=== PATIENT | female | born 1970 | race Caucasian/White ===

== ENCOUNTER 2023-06-18 23:44 | Emergency (ER) | payer MEDICAID, SELFPAY ==
[2023-06-18 23:57] VITALS: BP 149/85; PULSE 102; RESP 22; TEMP 37.7; O2SAT 96; BMI 20.9
--- NOTE | 2023-06-19 01:08 | XRR_ITS ---
PROCEDURE INFORMATION: Exam: XR Chest Exam date and time: 06/19/2023 1:18 AM Age: 52 years old Clinical indication: Cough and fever; Patient HX: Cough with fever; Additional info: Cough fever TECHNIQUE: Imaging protocol: Radiologic exam of the chest. Views: 1 view. COMPARISON: No relevant prior studies available. FINDINGS: Lungs: Unremarkable. No consolidation. Pleural spaces: Unremarkable. No pleural effusion. No pneumothorax. Heart/Mediastinum: Unremarkable. No cardiomegaly. Bones/joints: Unremarkable. XR/XR chest 1V portable [id number] IMPRESSION: No acute findings.
[2023-06-19 01:35] LABS: Basophils % 0.1 %; Hematocrit 37.3 % (36-47); Lymphocytes # 0.9 10^3/uL (0.8-4.8); Lymphocytes % 10.8 %; Mean Corpuscular HGB Conc 33.5 g/dL (30-55); Mean Corpuscular Hemoglobin 29.8 pg (27-33); Mean Platelet Volume 9.4 fL (7.4-10.4); Monocytes # 0.5 10^3/uL (0.2-0.9); Monocytes % 6.4 %; Neutrophils % 82.5 %; Nucleated Red Blood Cells % 0 %; Platelet Count 142 10^3/cmm (157-399); Red Blood Count 4.19 10^6/uL (3.85-5.65); Red Cell Distribution Width 13.2 % (12.1-15.1); White Blood Count 8.49 10^3/uL (3.29-11.43)
[2023-06-19 01:49] LABS: D Dimer 0.55 ug/mLFEU (0-0.59)
[2023-06-19] MEDS: ketorolac 30 mg/mL INJ IVP (01:49)
[2023-06-19] MEDS: ondansetron 2 mg/ML SDV 2 mL 4 MG IVP (01:49)
[2023-06-19 01:50] VITALS: RESP 18
[2023-06-19] MEDS: sodium chloride 0.9% 1,000 ML 999 ML IV (01:50)
[2023-06-19] MEDS: morphine 4 mg/mL SDV 1 mL IVP (01:50)
--- NOTE | 2023-06-19 01:51 | W.ED.ABDPA2 ---
HPI - Abdominal Pain General: Chief Complaint: Abdominal Pain Stated Complaint: Pain left mid flank and hip Time Seen by Provider: 06/19/23 01:02 History of Present Illness: 52-year-old female with multiple complaints this morning. She presents with cough, congestion, fever, left-sided flank pain and belly pain. She has been vomiting. Pain started on . It has continued. Pain radiates from flank to hip. She is somewhat short of breath Associated Symptoms: Reports chills, dysuria, fever(s), nausea and vomiting; Denies diarrhea Review of Systems Const: Reports: fever(s), chills and body aches ENMT: Denies: throat pain Card: Denies: chest pain or palpitations Resp: Reports: dyspnea and productive cough GI: Reports: abdominal pain, nausea and vomiting; Denies: diarrhea : Reports: flank pain and dysuria Musc: Reports: back pain Skin/Breast: Denies: rash Neuro: Reports: headache(s) Physical Exam Const: GENERAL APPEARANCE: cooperative, anxious and ill appearing; not frail appearing HENMT: COMMON NORMALS: normocephalic, atraumatic and Normal external nose present HEAD & SCALP: normocephalic and atraumatic FACE & SINUS: normal facial exam and face symmetric NOSE: Normal external nose present Eye: COMMON NORMALS: Equal, round and reactive pupils present and EOMs intact bilaterally PUPIL: Yes Equal, round and reactive pupils present Neck/C-Spine: GENERAL: Yes trachea midline Chest: CHEST: Yes Symmetrical chest wall rise Resp: COMMON NORMALS: normal respiratory effort, No retractions, No use of accessory muscles and clear to auscultation bilaterally AUSCULTATION: clear to auscultation bilaterally Cardio: COMMON NORMALS: regular rate and regular rhythm RATE: regular rate RHYTHM: regular rhythm GI: COMMON NORMALS: Normal to inspection, nondistended, normoactive bowel sounds present PALPATION: Yes Tenderness to palpation present (GI) Details: LLQ and LUQ : BLADDER/KIDNEY EXAM: Yes CVA tenderness on the left Back/Pelvis: GENERAL BACK: Yes CVA tenderness Extremity: COMMON NORMALS: no pedal edema Neuro: EMIL COMA SCALE: document GCS findings [place] coma scale eye opening: Spontaneous [place] coma scale verbal response: Orientated Emil coma scale motor response: Obey commands Emil coma scale total score: 15 SENSORY EXAM: Yes extremities (intact) Psych: COMMON NORMALS: speech normal SPEECH: Yes normal speech Skin: COMMON NORMALS: no rashes or lesions noted GENERAL SKIN EXAM: no rashes or lesions noted Course Vital Signs: Vital signs: Vital Signs Temperature 97.6 F 06/19/23 03:14 Pulse Rate 79 06/19/23 03:55 Respiratory Rate 18 06/19/23 01:50 Blood Pressure 106/58 06/19/23 03:55 Pulse Oximetry 96 06/19/23 03:55 Oxygen Delivery Me thod Room Air 06/19/23 03:55 MDM - Abdominal Pain Medical Decision Making Vitals have been stable here. She did have a fever. She was given Toradol and Tylenol with resolution of the temperature. Her white blood cell count is 8.5. Platelet count 142. BMP is not remarkable. She has 2+ leukocyte Estrace with positive nitrites, whites in the urine. She also has some blood in the urine. Swabs for flu and COVID are negative. She is given IV antibiotics. Her chest x-ray is negative. Awaiting CT scan for stone protocol given the hematuria. Mild hydronephrosis on the left with no obstructing stone by CT scan. Her pain is resolved. This is likely a passed stone given her clinical history, etc. With resolution of her pain and nausea, the patient feels as if she can go home. She will be treated with antibiotics for pyelonephritis. Return for any worsening symptoms. She agrees to plan. Lab Data 06/19/23 01:20 06/19/23 01:20 Labs/Radiology: Radiology Impressions Chest X-Ray 06/19/23 01:08 IMPRESSION: No acute findings. Abdomen/Pelvis CT 06/19/23 02:47 IMPRESSION: 1. There is [id number] left hydronephrosis and hydroureter with no obstructing stone visualized. There is left perinephric fat stranding with some fluid. These findings may be due to recently passed stone or infection. Advise correlation. 2. Suspect cystitis as well. 3. Minimal left nephrolithiasis and other chronic findings. Mild hepatosplenomegaly. 4. No small bowel obstruction, abscess or free air. The colon is rather fecal filled. Laboratory Results WBC 8.49 10^3/uL (3.29-11.43) 06/19/23 01:20 RBC 4.19 10^6/uL (3.85-5.65) 06/19/23 01:20 Hgb 12.50 g/dL (11.27-16.99) 06/19/23 01:20 Hct 37.3 % (36-47) 06/19/23 01:20 MCV 89.0 fl (85-98) 06/19/23 01:20 MCH 29.8 pg (27-33) 06/19/23 01:20 MCHC 33.5 g/dL (30-55) 06/19/23 01:20 RDW 13.2 % (12.1-15.1) 06/19/23 01:20 Plt Count 142 10^3/cmm (157-399) L 06/19/23 01:20 MPV 9.4 fL (7.4-10.4) 06/19/23 01:20 Neut % (Auto) 82.5 % 06/19/23 01:20 Lymph % (Auto) 10.8 % 06/19/23 01:20 [place] % (Auto) 6.4 % 06/19/23 01:20 Eos % (Auto) 0.0 % 06/19/23 01:20 Baso % (Auto) 0.1 % 06/19/23 01:20 Neut # (Auto) 7.00 10^3/uL (1.8-7.7) 06/19/23 01:20 Lymph # (Auto) 0.9 10^3/uL (0.8-4.8) 06/19/23 01:20 [place] # (Auto) 0.5 10^3/uL (0.2-0.9) 06/19/23 01:20 Eos # (Auto) 0.0 10^3/uL (0.0-0.8) 06/19/23 01:20 Baso # (Auto) 0.0 10^3/uL (0.0-0.1) 06/19/23 01:20 Nucleated RBC % (auto) 0 % 06/19/23 01:20 Nucleated RBCs # 0.0 /100WBC 06/19/23 01:20 D-Dimer 0.55 ug/mLFEU (0-0.59) 06/19/23 01:20 Sodium 136 mmol/L (136-145) 06/19/23 01:20 Potassium 4.3 mmol/L (3.5-5.1) 06/19/23 01:20 Chloride 103 mmol/L (98-107) 06/19/23 01:20 Carbon Dioxide 23 mmol/L (22-29) 06/19/23 01:20 Anion Gap 14.3 (5-19) 06/19/23 01:20 BUN 17 mg/dL (6-20) 06/19/23 01:20 Creatinine 0.8 mg/dL (0.5-0.9) 06/19/23 01:20 GFR Calculation 74.7 mL/min (90-130) L 06/19/23 01:20 Glucose 122 mg/dL (65-115) H 06/19/23 01:20 Calculated Osmolality 285 mOsm/kg (285-295) 06/19/23 01:20 Lactic Acid 0.6 mmol/L (0.5-2.2) 06/19/23 01:20 Calcium 9.3 mg/dL (8.5-10.5) 06/19/23 01:20 Total Bilirubin 0.3 mg/dL (0.15-1.2) 06/19/23 01:20 AST 33 U/L (0-32) H 06/19/23 01:20 ALT 47 U/L (0-33) H 06/19/23 01:20 Alkaline Phosphatase 118 U/L (35-105) H 06/19/23 01:20 C-Reactive Protein 55.9 mg/L (0.0-4.9) H 06/19/23 01:20 Total Protein 7.8 g/dL (6.6-8.7) 06/19/23 01:20 Albumin 3.6 g/dL (3.5-5.2) 06/19/23 01:20 Globulin 4.2 g/dL (1.3-4.6) 06/19/23 01:20 Lipase 28 U/L (13-60) 06/19/23 01:20 Urine Color Yellow (Yellow) 06/19/23 02:06 Urine Appearance Clear (CLEAR) 06/19/23 02:06 Urine pH 7 (5-7) 06/19/23 02:06 Ur Specific [place] 1.010 (1.005-1.030) 06/19/23 02:06 Urine Protein 1+ (Negative) H 06/19/23 02:06 Urine Glucose (UA) Norm (Normal) 06/19/23 02:06 Urine Ketones 1+ (Negative) H 06/19/23 02:06 Urine Blood 3+ (Negative) H 06/19/23 02:06 Urine Nitrate Positive (Negative) H 06/19/23 02:06 Urine Bilirubin Neg (Negative) 06/19/23 02:06 Urine Urobilinogen Norm mg/dL (Negative) 06/19/23 02:06 Ur Leukocyte Esterase 2+ (Negative) H 06/19/23 02:06 Urine RBC 15-25 /hpf (0-2) H 06/19/23 02:06 Urine WBC 25-40 /hpf (0-5) H 06/19/23 02:06 Ur Squamous Epith Cells 0-4 /hpf (0-5) H 06/19/23 02:06 Amorphous Sediment 1+ /hpf 06/19/23 02:06 Urine Bacteria 2+ /hpf (NONE) H 06/19/23 02:06 Hyaline Casts 0-4 /lpf H 06/19/23 02:06 Urine Mucus Trace /hpf 06/19/23 02:06 Adenovirus (PCR) Not detected (NOT DETECT) 06/19/23 02:00 C. pneumoniae DNA (PCR) Not detected (NOT DETECT) 06/19/23 02:00 Coronavirus 229E (PCR) Not detected (NOT DETECT) 06/19/23 02:00 Human Metapneumovir PCR Not detected (NOT DETECT) 06/19/23 02:00 Influenza A (H1) PCR Not detected (NOT DETECT) 06/19/23 02:00 Influ A (H1/09) PCR Not detected (NOT DETECT) 06/19/23 02:00 Influenza A (H3) PCR Not detected (NOT DETECT) 06/19/23 02:00 Influenza Type A Ag negative (Negative) 06/19/23 02:00 Influenza Type A (PCR) Not detected (NOT DETECT) 06/19/23 02:00 Influenza Type B Ag negative (Negative) 06/19/23 02:00 Influenza Type B (PCR) Not detected (NOT DETECT) 06/19/23 02:00 M. pneumoniae (PCR) Not detected (NOT DETECT) 06/19/23 02:00 Parainfluenza 1 (PCR) Not detected (NOT DETECT) 06/19/23 02:00 Parainfluenza 2 (PCR) Not detected (NOT DETECT) 06/19/23 02:00 Parainfluenza 3 (PCR) Not detected (NOT DETECT) 06/19/23 02:00 Parainfluenza 4 (PCR) Not detected (NOT DETECT) 06/19/23 02:00 RSV Type A (PCR) Not detected (NOT DETECT) 06/19/23 02:00 RSV Type B (PCR) Not detected (NOT DETECT) 06/19/23 02:00 Entero/Rhino (PCR) Not detected (NOT DETECT) 06/19/23 02:00 SARS-CoV-2 (PCR) Not detected (NOT DETECT) 06/19/23 02:00 SARS-CoV-2 Ag (Rapid) negative (Negative) 06/19/23 02:00 All radiology interpretation(s) finalized by discharge Discharge Plan Discharge Patient Disposition: Home Clinical Impression: Urinary tract infection Clinical Impression: (Ruled Out): Abdominal pain Condition: Stable Prescriptions: New Bactrim DS 800-160 mg tablet 1 tab PO BID 7 Days Qty: 14 0RF ondansetron 4 mg tablet,disintegrating 4 mg PO Q6H PRN (Reason: nausea and vomiting) Qty: 14 0RF Discharge Orders: Discharge ED (Routine); Ordered 06/19/23 Ordered By: Heber Joiner Patient Instructions: Kidney Infection (ED), Opioid Safety, Pain Management Activity Restrictions/Additional Instructions: Return for fever despite 2-3 doses of antibiotics, vomiting liquids or medications, worsening pain despite treatment, any other concerning symptoms. See your doctor for follow-up this week to ensure your urine infection is clearing. Coding Level of Care Code ED Visitor Services Specialist for Jaime Mosqueda
[2023-06-19 01:55] LABS: Alanine Aminotransferase 47 U/L (0-33); Albumin Level 3.6 g/dL (3.5-5.2); Alkaline Phosphatase 118 U/L (35-105); Anion Gap 14.3 (5-19); Aspartate Amino Transferase 33 U/L (0-32); Blood Urea Nitrogen 17 mg/dL (6-20); C Reactive Protein 55.9 mg/L (0.0-4.9); Calcium 9.3 mg/dL (8.5-10.5); Carbon Dioxide 23 mmol/L (22-29); Chloride 103 mmol/L (98-107); Globulin 4.2 g/dL (1.3-4.6); Glomerular Filtration Rate 74.7 mL/min (90-130); Glucose 122 mg/dL (65-115); Lipase 28 U/L (13-60); Osmolality Calculated 285 mOsm/kg (285-295); Potassium 4.3 mmol/L (3.5-5.1); Sodium 136 mmol/L (136-145); Total Bilirubin 0.3 mg/dL (0.15-1.2); Total Protein 7.8 g/dL (6.6-8.7)
[2023-06-19 01:56] LABS: Lactic Sepsis W/Reflex 0.6 mmol/L (0.5-2.2)
[2023-06-19 02:28] LABS: Add Urine Microscopic? YES
[2023-06-19 02:32] LABS: Protein Urine 1+ (Negative); Urine Appearance Clear (CLEAR); Urine Color Yellow (Yellow); pH Urine 7 (5-7)
[2023-06-19 02:32] LABS: Influenza A by IFA negative (Negative); Influenza B by IFA negative (Negative); SARS Covid-2 Antigen negative (Negative)
[2023-06-19 02:33] LABS: Bilirubin Urine Neg (Negative); Blood Urine 3+ (Negative); Glucose Urine UA Norm (Normal); Ketones Urine 1+ (Negative); Leukocyte Esterase Urine 2+ (Negative); Nitrate Urine Positive (Negative); Urobilinogen Urine Norm (Negative)
[2023-06-19 02:34] LABS: Add Urine Culture? Yes; Amorphous Sediment Urine 1+ /hpf; Bacteria Urine 2+ /hpf; Hyaline Casts Urine 0-4 /lpf; Mucus Urine TRACE /hpf; RBC Urine 15-25 /hpf (0-2); Squamous Epithelial Cell Urine 0-4 /hpf (0-5); WBC Urine 25-40 /hpf (0-5)
[2023-06-19] MEDS: acetaminophen 500 mg Tablet 1000 MG PO (02:38)
[2023-06-19 02:42] VITALS: BP 120/62; PULSE 84; O2SAT 94
--- NOTE | 2023-06-19 02:47 | CTR_ITS ---
PROCEDURE INFORMATION: Exam: CT Abdomen And Pelvis Without Contrast Exam date and time: 06/19/2023 3:16 AM Age: 52 years old Clinical indication: Abdominal pain; Prior surgery; Surgery date: 6+ months; Surgery type: Tubal; Patient HX: Left flank pain with hematuria; Additional info: Left flank pain, UTI, hematuria TECHNIQUE: Imaging protocol: Computed tomography of the abdomen and pelvis without contrast. Radiation optimization: All CT scans at this facility use at least one of these dose optimization techniques: automated exposure control; mA and/or kV adjustment per patient size (includes targeted exams where dose is matched to clinical indication); or iterative reconstruction. COMPARISON: CR (CHEST, ) 06/19/2023 1:18 AM RADIATION DOSE METRICS: Total DLP (mGy-cm): 346.29 FINDINGS: Lungs: The visualized lung bases are clear. Diaphragm: Tiny hiatal hernia. Liver: Mildly enlarged. No discrete mass. Gallbladder and bile ducts: No calcified gallstones or biliary dilation identified. Pancreas: Unremarkable with no suspicious mass. No ductal dilation. Spleen: Spleen is mildly large. Adrenal glands: Normal. No mass. Kidneys and ureters: Lobular and scarred left kidney. [id number] left hydronephrosis and hydroureter. Minimal left nephrolithiasis. Stomach and bowel: The colon is rather fecal filled. Mild sigmoid diverticulosis. No small bowel obstruction, abscess or free air. Appendix: Normal appendix. Intraperitoneal space: No abscess or free air. Vasculature: Advanced diffuse vascular calcification noted. Lymph nodes: No enlarged lymph nodes. Urinary bladder: There is mild bladder wall thickening. Reproductive: Unremarkable as visualized. Bones/joints: No acute fracture. Soft tissues: No acute or suspicious finding noted. CT/CT kidney stone [id number] IMPRESSION: 1. There is [id number] left hydronephrosis and hydroureter with no obstructing stone visualized. There is left perinephric fat stranding with some fluid. These findings may be due to recently passed stone or infection. Advise correlation. 2. Suspect cystitis as well. 3. Minimal left nephrolithiasis and other chronic findings. Mild hepatosplenomegaly. 4. No small bowel obstruction, abscess or free air. The colon is rather fecal filled.
[2023-06-19] MEDS: cefTRIAXone 1,000 MG in sodium chloride 0.9% (plus) 50 ML 100 MG IV (03:13)
[2023-06-19 03:14] VITALS: TEMP 36.4
[2023-06-19 03:55] VITALS: BP 106/58; PULSE 79; O2SAT 96
[2023-06-19 03:58] LABS: Adenovirus Not Detected (NOT DETECT); Chlamydia Pneumoniae Not Detected (NOT DETECT); Coronavirus 229E,HKU1,NL63,OC4 Not Detected (NOT DETECT); Human Metapneumovirus Not Detected (NOT DETECT); Human Rhinovirus/Enterovirus Not Detected (NOT DETECT); Influenza A Not Detected (NOT DETECT); Influenza A H1 Not Detected (NOT DETECT); Influenza A H1-2009 Not Detected (NOT DETECT); Influenza A H3 Not Detected (NOT DETECT); Influenza B Not Detected (NOT DETECT); Mycoplasma Pneumoniae Not Detected (NOT DETECT); Parainfluenza Virus Type 1 Not Detected (NOT DETECT); Parainfluenza Virus Type 2 Not Detected (NOT DETECT); Parainfluenza Virus Type 3 Not Detected (NOT DETECT); Parainfluenza Virus Type 4 Not Detected (NOT DETECT); Respiratory Syncytial Virus A Not Detected (NOT DETECT); Respiratory Syncytial Virus B Not Detected (NOT DETECT); SARS-COV-2 Not Detected (NOT DETECT)
== END 2023-06-19 04:34 | disposition home or self-care (01) ==
PROVIDERS: Emergency Provider Emergency Medicine
DX: N39.0 Urinary tract infection, site not specified (principal); Z11.52 Encounter for screening for COVID-19
CPT/HCPCS: 36415; 71045; 74176; 80053; 81001; 83605; 83690; 85025; 85378; 86140; 87077; 87086; 87186; 87426; 87486; 87581; 87633; 87804; 96361; 96365; 96375; 99285; J0696; J1885; J2270; J2405; J7030